=== PATIENT | female | born 1935 | race Caucasian/White ===

== ENCOUNTER 2022-09-16 15:07 | Emergency (ER) | payer MEDICARE, SELFPAY ==
[2022-09-16 15:19] VITALS: BP 135/70; PULSE 67; RESP 15; TEMP 36.6; O2SAT 92; BMI 24.0
--- NOTE | 2022-09-16 16:09 | ED_ITS ---
HPI - Female Genitourinary General: Chief complaint: Urogenital-Female Stated complaint: Possible UTI Time Seen by Provider: 09/16/22 15:31 History of Present Illness: 86-year-old female presents to the emergency department chief complaint of dysuria patient reports recently seen in outside facility started on Bactrim DS about a week ago patient reports that her symptoms are still continue including suprapubic abdominal pain dysuria she reports every reduced urination she does not recall have any back pain or flank pain associated reports mild nausea but no vomiting reports no fever patient presents to the ER for further assessment and management she does report approxi once a year she gets a urinary tract infection. Associated symptoms: Reports abdominal pain and nausea; Deny headache(s) Review of Systems General: Reports: 10 or more systems reviewed and unremarkable except in HPI and below Const: Denies: fever(s), chills, fatigue or malaise Eyes: Denies: change in vision or blurry vision Card: Denies: chest pain or palpitations Resp: Denies: dyspnea or productive cough GI: Reports: abdominal pain and nausea; Denies: vomiting : Reports: dysuria, urinary frequency and urinary urgency; Denies: difficulty voiding Musc: Denies: extremity pain or extremity swelling Skin/Breast: Denies: rash or pruritus Neuro: Denies: headache(s) Psych: Denies: anxiety or depression Bryant/Lymph: Denies: easy bleeding All/Imm: Denies: urticaria, throat swelling or facial swelling Physical Exam Narrative: EXAM NARRATIVE: Patient appears nontoxic appears slightly uncomfortable but appears in no obvious acute distress. Const: COMMON NORMALS: no acute distress, patient oriented x3 and healthy appearing HENMT: COMMON NORMALS: normocephalic and atraumatic HEAD & SCALP: normocephalic and atraumatic Eye: COMMON NORMALS: Equal, round and reactive pupils present and EOMs intact bilaterally PUPIL: Yes Equal, round and reactive pupils present Neck/C-Spine: COMMON NORMALS: full ROM, supple and no JVD Lymph: LYMPHATIC: no lymphadenopathy noted Chest: COMMONS NORMALS: normal inspection of the chest and normal palpation of entire chest wall Resp: COMMON NORMALS: normal respiratory effort, No retractions and clear to auscultation bilaterally EFFORT & INSPECTION: Yes able to speak in complete sentences and Yes symmetric chest movement AUSCULTATION: clear to auscultation bilaterally Cardio: COMMON NORMALS: no JVD, regular rate and regular rhythm RATE: regular rate RHYTHM: regular rhythm GI: COMMON NORMALS: Normal to inspection, nondistended, normoactive bowel sounds present, Soft to palpation and non-tender INSPECTION: Yes normal to inspection PALPATION: Yes Soft to palpation OTHER: Mild to moderate pain noted to the suprapubic region no obvious flank pain appreciated otherwise soft nontender nondistended Extremity: COMMON NORMALS: normal to inspection and full ROM Neuro: COMMON NORMALS: patient oriented x3, CN's II-XII intact bilaterally, moves all extremities and no focal motor deficits Psych: COMMON NORMALS: mental status grossly normal, Normal thought process present, cooperative and normal affect THOUGHT PROCESS: Normal thought process present Skin: COMMON NORMALS: no rashes or lesions noted GENERAL SKIN EXAM: no rashes or lesions noted Course Vital Signs: Vital signs: Vital Signs Temperature 97.8 F 09/16/22 15:19 Pulse Rate 67 09/16/22 15:19 Respiratory Rate 15 09/16/22 15:19 Blood Pressure 135/70 09/16/22 15:19 Pulse Oximetry 92 09/16/22 15:19 Oxygen Delivery Me thod 09/16/22 15:19 MDM - Female Medical Decision Making Due to the patient's symptom patient will undergo urinalysis patient will be provided Pyridium we will continue to follow we need to culture the urine to determine whether or not patient is on at the appropriate antibiotic regimen did advise patient we will need to discontinue the Bactrim as previously prescribed. This is due to the concerns of potential bacterial resistance or infectious resistance to the initial antibiotic regimen. Urinalysis came back be the patient has more inflammation and inflammatory type changes due to her recurrent cystitis advised that she continue on her current antibiotic regimen as it does seem to be resolving the infection I am concerned she may have some secondary inflammation that is resolving that will be improved with medication I provided her to divide that she further follow-up with her primary care doctor in the next 1 week for repeat urinalysis to reveal resolution of her symptoms in which if her symptoms continue she may require additional referral to urology. Patient was advised increased water consumption as well as started on additional medications for her associated symptoms advised her to return the interim if any of her symptoms persist or worse. Lab Data Laboratory Results Urine Color Yellow (Yellow) 09/16/22 16:09 Urine Appearance Clear (CLEAR) 09/16/22 16:09 Urine pH 6 (5-7) 09/16/22 16:09 Ur Specific [place] 1.015 (1.005-1.030) 09/16/22 16:09 Urine Protein Neg (Negative) 09/16/22 16:09 Urine Glucose (UA) Norm (Normal) 09/16/22 16:09 Urine Ketones Negative (Negative) 09/16/22 16:09 Urine Blood Neg (Negative) 09/16/22 16:09 Urine Nitrate Negative (Negative) 09/16/22 16:09 Urine Bilirubin Neg (Negative) 09/16/22 16:09 Urine Urobilinogen Norm mg/dL (Negative) 09/16/22 16:09 Ur Leukocyte Esterase Negative (Negative) 09/16/22 16:09 Discharge Plan Discharge Patient Disposition: Home Clinical Impression: Cystitis, Dysuria Condition: Stable Prescriptions: New ondansetron HCl 4 mg tablet 4 mg PO Q8H PRN (Reason: nausea and vomiting) Qty: 14 0RF Pyridium 100 mg tablet 100 mg PO Q8H PRN (Reason: pain) Qty: 10 0RF Discharge Orders: Discharge ED (Routine); Ordered 09/16/22 Ordered By: Emory Middleton Referrals: [facility], [Staff Physician] - 4-7 days Discharge Diet: Advance as tolerated Discharge Activity: Increase activity as tolerated Patient Instructions: Urinary Tract Infection in Women (ED), Urinary Tract Infection in Older Adults (ED) Activity Restrictions/Additional Instructions: Please follow-up with your primary care to please keep as well as take the medication as prescribed for your breakthrough symptoms. Please increase your water consumption and this will reduce the likelihood of additional infection as well as promote hydration to reduce likelihood of additional pain with urination., as they do seem to be helping the infection at this time please return the interim if any of her symptoms persist or worsen otherwise further follow-up with primary care within 1 week Coding Level of Care Code ED Media/Instructional Designer for [place] Fwd Exam Comprehensive
[2022-09-16 16:12] LABS: Add Urine Microscopic? NO; Charge for UA Resulting for Rev
[2022-09-16 16:18] LABS: Bilirubin Urine Neg (Negative); Blood Urine Neg (Negative); Glucose Urine UA Norm (Normal); Ketones Urine Negative (Negative); Leukocyte Esterase Urine Negative (Negative); Nitrate Urine Negative (Negative); Protein Urine Neg (Negative); Specific Gravity, Urine 1.015 (1.005-1.030); Urine Appearance Clear (CLEAR); Urine Color Yellow (Yellow); Urobilinogen Urine Norm (Negative); pH Urine 6 (5-7)
[2022-09-16] MEDS: phenazopyridine 100 mg Tablet PO (16:50)
== END 2022-09-16 16:52 | disposition home or self-care (01) ==
PROVIDERS: Emergency Provider Emergency Medicine
DX: N30.90 Cystitis, unspecified without hematuria (principal); R30.0 Dysuria
CPT/HCPCS: 81003; 99283